=== PATIENT | male | born 1955 | race African-American/Black ===

== ENCOUNTER 2018-10-20 11:40 | Inpatient (IN) | payer MEDICAID, OTHER ==
[~2018-10-20] VITALS: Ht 167.6 cm; Wt 59.0 kg
[2018-10-20] MEDS ORDERED: PIPERACILLIN/TAZ 3.375G PREMIX 50 ML IV ONE (12:45)
[2018-10-20] MEDS ORDERED: VANCOMYCIN 1 G PREMIX 200 ML IV ONE (12:45)
[2018-10-20] MEDS ORDERED: SODIUM CHLORIDE 0.9% 1000ML BAG (SEPSIS BOLUS) IV ONE (12:45)
[2018-10-20 12:46] LABS: BASOPHILS % 0.9 % (0.0-2.0); EOSINOPHILS % 0.2 % (0.0-5.0); HEMATOCRIT. 41.5 % (42.0-52.0); LYMPHOCYTES % 12.8 % (20.0-50.0); MEAN CORPUSCULAR HEMOGLOBIN 32.4 pg (28.0-32.0); MEAN CORPUSCULAR VOLUME 95.9 fL (80.0-94.0); MEAN PLATELET VOLUME 9.9 fl (7.4-10.4); MONOCYTES % 6.1 % (2.0-8.0); PLATELET 278 x1000/uL (130-400); RED BLOOD CELL COUNT 4.32 mill/uL (4.7-6.1); RED CELL DISTRIBUTION WIDTH 14.9 % (11.6-14.6)
[2018-10-20 12:55] LABS: INR 0.9; PROTHROMBIN TIME 9.6 sec (9.6-11.0)
[2018-10-20 12:56] LABS: CHLORIDE 98 mEq/L (98-107)
[2018-10-20] MEDS ORDERED: INSULIN REGULAR (HUMULIN R) 300UNITS/3ML SUBCUT ONE (13:45)
[2018-10-20 14:34] LABS: CLARITY URINE CLEAR (CLEAR); COLOR URINE YELLOW (YELLOW); KETONES URINE NEGATIVE (NEGATIVE); LEUKOCYTE ESTERASE URINE NEGATIVE (NEGATIVE); NITRITE URINE NEGATIVE (NEGATIVE); OCCULT BLOOD URINE NEGATIVE (NEGATIVE); PROTEIN URINE NEGATIVE (NEGATIVE); SPECIFIC GRAVITY URINE 1.036 (1.005-1.030); UROBILINOGEN URINE 0.2 E.U./dL (0.2-1.0)
[2018-10-20] MEDS ORDERED: ONDANSETRON HCL 4MG/2ML INJ IV PRN (16:00)
[2018-10-20] MEDS ORDERED: ACETAMINOPHEN 325MG TABLET PO PRN (16:00)
[2018-10-20] MEDS ORDERED: MORPHINE SULFATE 2 MG/ML CPJ (NOT FOR IM USE) IV PRN (16:00)
[2018-10-20] MEDS ORDERED: CLONIDINE 0.1MG TABLET PO PRN (16:00)
[2018-10-20] MEDS ORDERED: DOCUSATE SODIUM 100MG CAPSULE PO PRN (16:00)
[2018-10-20] MEDS ORDERED: PIPERACILLIN/TAZ 3.375G PREMIX 50 ML IV SCH (16:00)
[2018-10-20] MEDS ORDERED: OXYCODONE HCL/ACETAMINOPHEN 5/325MG TABLET PO ONE (18:15)
[2018-10-21] MEDS ORDERED: INSULIN GLARGINE UD 100 UNITS/ML SYR SUBCUT NR (01:00)
[2018-10-21 04:00] VITALS: BP 154/78
[2018-10-21 04:10] VITALS: BP 156/81
[2018-10-21] MEDS: PIPERACILLIN/TAZ 3.375G PREMIX 50 ML IV SCH ×3 (06:41→21:29)
[2018-10-21] MEDS: SODIUM CHLORIDE 0.9% 1,000 ML IV SCH ×2 (06:42→17:32)
[2018-10-21] MEDS ORDERED: DEXTROSE 50% WATER 50ML SYRINGE IV PRN (07:45)
[2018-10-21 08:00] VITALS: BP 131/72
[2018-10-21] MEDS: VANCOMYCIN 750 MG PREMIX 150 ML IV SCH ×3 (08:02→23:30)
[2018-10-21] MEDS: ENOXAPARIN 40MG/0.4ML SYR SUBCUT SCH (08:03)
[2018-10-21] MEDS: AMLODIPINE 10MG TABLET PO SCH (08:03)
[2018-10-21] MEDS: INSULIN LISPRO 100 UNITS/ML SUBCUT SCH ×4 (08:08→21:37)
[2018-10-21 09:04] LABS: CHLORIDE 102 mEq/L (98-107)
[2018-10-21 09:05] LABS: BASOPHILS % 0.7 % (0.0-2.0); EOSINOPHILS % 1.5 % (0.0-5.0); HEMATOCRIT. 40.3 % (42.0-52.0); HEMOGLOBIN. 13.5 g/dL (14.0-18.0); LYMPHOCYTES % 22.3 % (20.0-50.0); MEAN CORPUSCULAR HEMOGLOBIN 31.5 pg (28.0-32.0); MEAN CORPUSCULAR VOLUME 94.2 fL (80.0-94.0); MEAN PLATELET VOLUME 9.5 fl (7.4-10.4); MONOCYTES % 6.6 % (2.0-8.0); NEUTROPHILS % 68.9 % (40.0-76.0); PLATELET 278 x1000/uL (130-400); RED BLOOD CELL COUNT 4.28 mill/uL (4.7-6.1); RED CELL DISTRIBUTION WIDTH 14.9 % (11.6-14.6)
[2018-10-21 11:55] VITALS: BP 137/77
[2018-10-21] MEDS: BLOOD SUGAR DIAGNOSTIC STRIP TEST SCH ×3 (12:26→21:17)
[2018-10-21] MEDS: INSULIN GLARGINE UD 100 UNITS/ML SYR SUBCUT SCH ×2 (13:43→21:37)
[2018-10-21 16:22] VITALS: BP 135/88
[2018-10-21] MEDS: HYDROCODONE/ACETAMINOPHEN 5/325MG TABLET PO PRN (17:30)
[2018-10-21 20:00] VITALS: BP 128/79
[2018-10-21] MEDS ORDERED: INSULIN GLARGINE UD 100 UNITS/ML SYR SUBCUT SCH ×2 (22:00)
[2018-10-22] VITALS: BP 137/79
[2018-10-22 04:00] VITALS: BP 149/86
[2018-10-22] MEDS: SODIUM CHLORIDE 0.9% 1,000 ML IV SCH ×2 (06:05→22:31)
[2018-10-22] MEDS: PIPERACILLIN/TAZ 3.375G PREMIX 50 ML IV SCH ×3 (06:05→22:25)
[2018-10-22] MEDS: BLOOD SUGAR DIAGNOSTIC STRIP TEST SCH ×4 (06:38→21:30)
[2018-10-22] MEDS: INSULIN LISPRO 100 UNITS/ML SUBCUT SCH ×4 (06:42→21:39)
[2018-10-22 08:00] VITALS: BP 135/66
[2018-10-22] MEDS: AMLODIPINE 10MG TABLET PO SCH (08:27)
[2018-10-22] MEDS: VANCOMYCIN 750 MG PREMIX 150 ML IV SCH ×2 (08:28→16:52)
[2018-10-22] MEDS: ENOXAPARIN 40MG/0.4ML SYR SUBCUT SCH (08:28)
[2018-10-22] MEDS: INSULIN GLARGINE UD 100 UNITS/ML SYR SUBCUT SCH ×2 (10:25→22:25)
[2018-10-22 12:00] VITALS: BP 133/75
[2018-10-22 20:00] VITALS: BP 138/74
[2018-10-23] VITALS: BP 132/68
[2018-10-23] MEDS: VANCOMYCIN 750 MG PREMIX 150 ML IV SCH ×3 (00:10→18:30)
[2018-10-23 04:00] VITALS: BP 135/76
[2018-10-23] MEDS: PIPERACILLIN/TAZ 3.375G PREMIX 50 ML IV SCH ×3 (06:07→22:28)
[2018-10-23] MEDS: BLOOD SUGAR DIAGNOSTIC STRIP TEST SCH ×4 (07:29→21:00)
[2018-10-23 08:00] VITALS: BP 140/76
[2018-10-23] MEDS: ENOXAPARIN 40MG/0.4ML SYR SUBCUT SCH (08:49)
[2018-10-23] MEDS: AMLODIPINE 10MG TABLET PO SCH (08:50)
[2018-10-23] MEDS: INSULIN LISPRO 100 UNITS/ML SUBCUT SCH ×4 (08:50→21:00)
[2018-10-23] MEDS: INSULIN GLARGINE UD 100 UNITS/ML SYR SUBCUT SCH ×2 (10:55→22:40)
[2018-10-23 12:06] VITALS: BP 140/76
[2018-10-23 15:54] VITALS: BP 149/82
[2018-10-23] MEDS: SODIUM CHLORIDE 0.9% 1,000 ML IV SCH (18:34)
[2018-10-23 20:00] VITALS: BP 144/78
[2018-10-24] VITALS: BP 156/81
[2018-10-24] MEDS: VANCOMYCIN 750 MG PREMIX 150 ML IV SCH ×3 (01:51→17:17)
[2018-10-24 04:00] VITALS: BP 142/89
[2018-10-24] MEDS: PIPERACILLIN/TAZ 3.375G PREMIX 50 ML IV SCH ×3 (05:29→22:13)
[2018-10-24] MEDS: BLOOD SUGAR DIAGNOSTIC STRIP TEST SCH ×4 (07:04→21:00)
[2018-10-24 08:00] VITALS: BP 140/74
[2018-10-24] MEDS: ENOXAPARIN 40MG/0.4ML SYR SUBCUT SCH (08:55)
[2018-10-24] MEDS: AMLODIPINE 10MG TABLET PO SCH (08:56)
[2018-10-24] MEDS: INSULIN LISPRO 100 UNITS/ML SUBCUT SCH ×4 (09:10→22:42)
[2018-10-24] MEDS: SODIUM CHLORIDE 0.9% 1,000 ML IV SCH (09:11)
[2018-10-24] MEDS: HYDROCODONE/ACETAMINOPHEN 5/325MG TABLET PO PRN (09:15)
[2018-10-24] MEDS: INSULIN GLARGINE UD 100 UNITS/ML SYR SUBCUT SCH ×2 (11:18→22:23)
[2018-10-24 11:47] VITALS: BP 137/70
[2018-10-24 16:13] VITALS: BP 140/78
[2018-10-24 20:00] VITALS: BP 153/79
[2018-10-25] VITALS: BP 157/78
[2018-10-25] MEDS: VANCOMYCIN 750 MG PREMIX 150 ML IV SCH ×3 (00:10→17:21)
[2018-10-25 04:00] VITALS: BP 158/81
[2018-10-25] MEDS: PIPERACILLIN/TAZ 3.375G PREMIX 50 ML IV SCH ×3 (05:57→22:33)
[2018-10-25] MEDS: BLOOD SUGAR DIAGNOSTIC STRIP TEST SCH ×4 (06:24→21:00)
[2018-10-25] MEDS: INSULIN LISPRO 100 UNITS/ML SUBCUT SCH ×4 (06:24→22:47)
[2018-10-25 07:45] LABS: CHLORIDE 107 mEq/L (98-107)
[2018-10-25 08:00] VITALS: BP 149/82
[2018-10-25] MEDS: ENOXAPARIN 40MG/0.4ML SYR SUBCUT SCH (09:05)
[2018-10-25] MEDS: AMLODIPINE 10MG TABLET PO SCH (09:06)
[2018-10-25] MEDS: INSULIN GLARGINE UD 100 UNITS/ML SYR SUBCUT SCH ×2 (09:53→22:47)
[2018-10-25] MEDS: SODIUM CHLORIDE 0.9% 1,000 ML IV SCH (09:54)
[2018-10-25 12:00] VITALS: BP 165/92
[2018-10-25 16:00] VITALS: BP 130/74
[2018-10-25 20:00] VITALS: BP 149/79
[2018-10-26] VITALS: BP 143/76
[2018-10-26] MEDS: VANCOMYCIN 750 MG PREMIX 150 ML IV SCH ×3 (01:09→17:07)
[2018-10-26 04:00] VITALS: BP 152/86
[2018-10-26] MEDS: PIPERACILLIN/TAZ 3.375G PREMIX 50 ML IV SCH ×3 (05:58→23:55)
[2018-10-26] MEDS: INSULIN LISPRO 100 UNITS/ML SUBCUT SCH ×4 (07:50→21:00)
[2018-10-26] MEDS: BLOOD SUGAR DIAGNOSTIC STRIP TEST SCH ×4 (07:57→21:00)
[2018-10-26 08:00] VITALS: BP 125/73
[2018-10-26] MEDS: AMLODIPINE 10MG TABLET PO SCH (08:45)
[2018-10-26] MEDS: ENOXAPARIN 40MG/0.4ML SYR SUBCUT SCH (08:46)
[2018-10-26] MEDS: SODIUM CHLORIDE 0.9% 1,000 ML IV SCH ×2 (11:00→11:32)
[2018-10-26] MEDS: INSULIN GLARGINE UD 100 UNITS/ML SYR SUBCUT SCH ×2 (11:43→23:42)
[2018-10-26 12:02] VITALS: BP 132/76
[2018-10-26 16:00] VITALS: BP 134/70
[2018-10-26 20:00] VITALS: BP 144/76
[2018-10-27] VITALS: BP 146/83
[2018-10-27 04:00] VITALS: BP 146/83
[2018-10-27] MEDS: VANCOMYCIN 750 MG PREMIX 150 ML IV SCH ×3 (04:19→17:58)
[2018-10-27] MEDS: SODIUM CHLORIDE 0.9% 1,000 ML IV SCH (06:14)
[2018-10-27] MEDS: PIPERACILLIN/TAZ 3.375G PREMIX 50 ML IV SCH ×3 (06:14→22:45)
[2018-10-27] MEDS: INSULIN LISPRO 100 UNITS/ML SUBCUT SCH ×4 (07:50→20:08)
[2018-10-27 08:00] VITALS: BP 119/80
[2018-10-27] MEDS: BLOOD SUGAR DIAGNOSTIC STRIP TEST SCH ×4 (08:03→20:05)
[2018-10-27] MEDS: ENOXAPARIN 40MG/0.4ML SYR SUBCUT SCH (08:50)
[2018-10-27] MEDS: AMLODIPINE 10MG TABLET PO SCH (08:50)
[2018-10-27] MEDS: INSULIN GLARGINE UD 100 UNITS/ML SYR SUBCUT SCH ×2 (10:44→22:34)
[2018-10-27 12:00] VITALS: BP 134/81
[2018-10-27 16:00] VITALS: BP 134/83
[2018-10-27 20:00] VITALS: BP 143/74
[2018-10-28] VITALS: BP 128/66
[2018-10-28] MEDS: VANCOMYCIN 750 MG PREMIX 150 ML IV SCH ×3 (01:37→16:00)
[2018-10-28 04:00] VITALS: BP 140/78
[2018-10-28] MEDS: PIPERACILLIN/TAZ 3.375G PREMIX 50 ML IV SCH ×3 (06:09→21:18)
[2018-10-28] MEDS: BLOOD SUGAR DIAGNOSTIC STRIP TEST SCH ×4 (06:23→20:10)
[2018-10-28 08:00] VITALS: BP 117/70
[2018-10-28] MEDS: ENOXAPARIN 40MG/0.4ML SYR SUBCUT SCH (08:54)
[2018-10-28] MEDS: AMLODIPINE 10MG TABLET PO SCH (08:55)
[2018-10-28 08:57] LABS: BASOPHILS % 1.1 % (0.0-2.0); HEMATOCRIT. 39.6 % (42.0-52.0); HEMOGLOBIN. 13.4 g/dL (14.0-18.0); LYMPHOCYTES % 34.1 % (20.0-50.0); MEAN CORPUSCULAR HEMOGLOBIN 31.6 pg (28.0-32.0); MEAN CORPUSCULAR VOLUME 93.5 fL (80.0-94.0); MEAN PLATELET VOLUME 8.4 fl (7.4-10.4); MONOCYTES % 11.7 % (2.0-8.0); NEUTROPHILS % 50.1 % (40.0-76.0); PLATELET 384 x1000/uL (130-400); RED BLOOD CELL COUNT 4.24 mill/uL (4.7-6.1); RED CELL DISTRIBUTION WIDTH 15.3 % (11.6-14.6)
[2018-10-28] MEDS: INSULIN LISPRO 100 UNITS/ML SUBCUT SCH ×4 (09:34→20:10)
[2018-10-28] MEDS: INSULIN GLARGINE UD 100 UNITS/ML SYR SUBCUT SCH ×2 (10:39→21:18)
[2018-10-28 12:13] VITALS: BP 132/72
[2018-10-28 16:16] VITALS: BP 132/74
[2018-10-28 20:00] VITALS: BP 133/80
[2018-10-29] VITALS: BP 135/84
[2018-10-29] MEDS: VANCOMYCIN 750 MG PREMIX 150 ML IV SCH ×3 (00:45→15:43)
[2018-10-29 04:00] VITALS: BP 135/74
[2018-10-29] MEDS: PIPERACILLIN/TAZ 3.375G PREMIX 50 ML IV SCH ×3 (05:24→23:03)
[2018-10-29] MEDS: BLOOD SUGAR DIAGNOSTIC STRIP TEST SCH ×4 (06:26→21:00)
[2018-10-29] MEDS: INSULIN LISPRO 100 UNITS/ML SUBCUT SCH ×4 (07:50→23:02)
[2018-10-29 08:00] VITALS: BP 127/77
[2018-10-29] MEDS: ENOXAPARIN 40MG/0.4ML SYR SUBCUT SCH (09:09)
[2018-10-29] MEDS: AMLODIPINE 10MG TABLET PO SCH (09:28)
[2018-10-29] MEDS: INSULIN GLARGINE UD 100 UNITS/ML SYR SUBCUT SCH ×2 (09:56→22:54)
[2018-10-29 12:17] VITALS: BP 154/83
[2018-10-29 16:10] VITALS: BP 150/75
[2018-10-29 20:00] VITALS: BP 125/74
[2018-10-30] VITALS: BP 142/81
[2018-10-30] MEDS: VANCOMYCIN 750 MG PREMIX 150 ML IV SCH ×2 (01:11→08:52)
[2018-10-30 04:00] VITALS: BP 133/79
[2018-10-30] MEDS: PIPERACILLIN/TAZ 3.375G PREMIX 50 ML IV SCH ×2 (05:51→14:31)
[2018-10-30] MEDS: BLOOD SUGAR DIAGNOSTIC STRIP TEST SCH ×3 (07:20→21:00)
[2018-10-30] MEDS: INSULIN LISPRO 100 UNITS/ML SUBCUT SCH ×4 (07:50→22:47)
[2018-10-30 08:00] VITALS: BP 128/80
[2018-10-30 08:15] LABS: EOSINOPHILS % 2.9 % (0.0-5.0); HEMATOCRIT. 39.9 % (42.0-52.0); HEMOGLOBIN. 13.4 g/dL (14.0-18.0); LYMPHOCYTES % 32.2 % (20.0-50.0); MEAN CORPUSCULAR HEMOGLOBIN 31.7 pg (28.0-32.0); MEAN CORPUSCULAR VOLUME 94.5 fL (80.0-94.0); MEAN PLATELET VOLUME 8.4 fl (7.4-10.4); MONOCYTES % 13.1 % (2.0-8.0); NEUTROPHILS % 50.8 % (40.0-76.0); PLATELET 383 x1000/uL (130-400); RED BLOOD CELL COUNT 4.22 mill/uL (4.7-6.1); RED CELL DISTRIBUTION WIDTH 15.2 % (11.6-14.6)
[2018-10-30 08:38] LABS: CHLORIDE 104 mEq/L (98-107)
[2018-10-30 08:49] LABS: VANCOMYCIN TROUGH 19.6 ug/mL (5.0-10.0)
[2018-10-30] MEDS: ENOXAPARIN 40MG/0.4ML SYR SUBCUT SCH (08:52)
[2018-10-30] MEDS: AMLODIPINE 10MG TABLET PO SCH (09:39)
[2018-10-30] MEDS: INSULIN GLARGINE UD 100 UNITS/ML SYR SUBCUT SCH ×2 (10:29→22:45)
[2018-10-30 12:00] VITALS: BP 137/81
[2018-10-30 16:00] VITALS: BP 127/70
[2018-10-30 20:00] VITALS: BP 135/84
[2018-10-30] MEDS: VANCOMYCIN 1 G PREMIX 200 ML IV SCH (22:19)
[2018-10-30] MEDS: HYDROCODONE/ACETAMINOPHEN 5/325MG TABLET PO PRN (23:12)
[2018-10-31] MEDS: PIPERACILLIN/TAZ 3.375G PREMIX 50 ML IV SCH ×4 (00:22→22:56)
[2018-10-31 04:00] VITALS: BP 133/60
[2018-10-31] MEDS: BLOOD SUGAR DIAGNOSTIC STRIP TEST SCH ×4 (07:20→21:48)
[2018-10-31] MEDS: ENOXAPARIN 40MG/0.4ML SYR SUBCUT SCH (09:10)
[2018-10-31] MEDS: AMLODIPINE 10MG TABLET PO SCH (09:11)
[2018-10-31] MEDS: VANCOMYCIN 1 G PREMIX 200 ML IV SCH ×2 (09:11→20:15)
[2018-10-31] MEDS: INSULIN LISPRO 100 UNITS/ML SUBCUT SCH ×4 (09:13→21:46)
[2018-10-31] MEDS: INSULIN GLARGINE UD 100 UNITS/ML SYR SUBCUT SCH ×2 (10:25→21:47)
[2018-10-31 12:00] VITALS: BP 157/84
[2018-10-31 16:00] VITALS: BP 139/70
[2018-10-31 20:00] VITALS: BP 132/73
[2018-11-01] VITALS: BP 116/76
[2018-11-01 04:00] VITALS: BP 126/78
[2018-11-01] MEDS: PIPERACILLIN/TAZ 3.375G PREMIX 50 ML IV SCH ×3 (06:15→22:22)
[2018-11-01 07:12] LABS: CHLORIDE 102 mEq/L (98-107)
[2018-11-01] MEDS: INSULIN LISPRO 100 UNITS/ML SUBCUT SCH ×4 (07:50→21:12)
[2018-11-01] MEDS: BLOOD SUGAR DIAGNOSTIC STRIP TEST SCH ×4 (07:56→21:08)
[2018-11-01 08:00] VITALS: BP 126/78
[2018-11-01] MEDS: VANCOMYCIN 1 G PREMIX 200 ML IV SCH ×2 (08:28→21:02)
[2018-11-01] MEDS: AMLODIPINE 10MG TABLET PO SCH (08:32)
[2018-11-01] MEDS: ENOXAPARIN 40MG/0.4ML SYR SUBCUT SCH (08:35)
[2018-11-01] MEDS: INSULIN GLARGINE UD 100 UNITS/ML SYR SUBCUT SCH ×2 (09:33→22:22)
[2018-11-01 12:00] VITALS: BP 116/73
[2018-11-01 16:00] VITALS: BP 126/72
[2018-11-01] MEDS: HYDROCODONE/ACETAMINOPHEN 5/325MG TABLET PO PRN (18:01)
[2018-11-02] VITALS: BP 118/71
[2018-11-02 04:00] VITALS: BP 144/80
[2018-11-02] MEDS: PIPERACILLIN/TAZ 3.375G PREMIX 50 ML IV SCH ×3 (05:36→22:16)
[2018-11-02] MEDS: BLOOD SUGAR DIAGNOSTIC STRIP TEST SCH ×4 (06:42→21:01)
[2018-11-02] MEDS: INSULIN LISPRO 100 UNITS/ML SUBCUT SCH ×4 (07:50→21:19)
[2018-11-02 08:00] VITALS: BP 133/73
[2018-11-02] MEDS: VANCOMYCIN 1 G PREMIX 200 ML IV SCH (08:36)
[2018-11-02] MEDS: MULTIVITAMINS,THER W-MINERALS TABLET PO SCH (08:36)
[2018-11-02] MEDS: AMLODIPINE 10MG TABLET PO SCH (08:37)
[2018-11-02] MEDS: ENOXAPARIN 40MG/0.4ML SYR SUBCUT SCH (08:37)
[2018-11-02] MEDS: INSULIN GLARGINE UD 100 UNITS/ML SYR SUBCUT SCH ×2 (10:35→22:22)
[2018-11-02 12:19] VITALS: BP 142/77
[2018-11-02 16:15] VITALS: BP 138/77
[2018-11-02 20:00] VITALS: BP 151/79
[2018-11-03] VITALS: BP 142/78
[2018-11-03 04:00] VITALS: BP 142/88
[2018-11-03] MEDS: VANCOMYCIN 1 G PREMIX 200 ML IV SCH (06:27)
[2018-11-03] MEDS: BLOOD SUGAR DIAGNOSTIC STRIP TEST SCH ×4 (06:34→21:00)
[2018-11-03] MEDS: INSULIN LISPRO 100 UNITS/ML SUBCUT SCH ×4 (07:50→23:11)
[2018-11-03 08:00] VITALS: BP 143/75
[2018-11-03] MEDS: ENOXAPARIN 40MG/0.4ML SYR SUBCUT SCH (09:14)
[2018-11-03] MEDS: MULTIVITAMINS,THER W-MINERALS TABLET PO SCH (09:14)
[2018-11-03] MEDS: AMLODIPINE 10MG TABLET PO SCH (09:15)
[2018-11-03] MEDS: INSULIN GLARGINE UD 100 UNITS/ML SYR SUBCUT SCH ×2 (09:18→23:11)
[2018-11-03] MEDS: PIPERACILLIN/TAZ 3.375G PREMIX 50 ML IV SCH ×3 (10:46→21:00)
[2018-11-03 12:00] VITALS: BP 140/78
[2018-11-03 16:00] VITALS: BP 131/83
[2018-11-03] MEDS ORDERED: VANCOMYCIN 1 G PREMIX 200 ML IV SCH (18:00)
[2018-11-03 20:00] VITALS: BP 134/77
[2018-11-04] VITALS: BP 143/81
[2018-11-04 04:00] VITALS: BP 143/80
[2018-11-04] MEDS ORDERED: VANCOMYCIN 1 G PREMIX 200 ML IV SCH (06:00)
[2018-11-04 08:00] VITALS: BP 139/80
[2018-11-04] MEDS: BLOOD SUGAR DIAGNOSTIC STRIP TEST SCH ×4 (08:06→21:16)
[2018-11-04] MEDS: MULTIVITAMINS,THER W-MINERALS TABLET PO SCH (08:52)
[2018-11-04] MEDS: AMLODIPINE 10MG TABLET PO SCH (08:52)
[2018-11-04] MEDS: ENOXAPARIN 40MG/0.4ML SYR SUBCUT SCH (08:53)
[2018-11-04] MEDS: INSULIN LISPRO 100 UNITS/ML SUBCUT SCH ×4 (08:59→21:29)
[2018-11-04] MEDS: INSULIN GLARGINE UD 100 UNITS/ML SYR SUBCUT SCH (10:46)
[2018-11-04 12:00] VITALS: BP 145/80
[2018-11-04 16:00] VITALS: BP 142/74
[2018-11-04 20:00] VITALS: BP 158/88
[2018-11-05] MEDS: INSULIN GLARGINE UD 100 UNITS/ML SYR SUBCUT SCH ×2 (00:01→10:58)
[2018-11-05 04:00] VITALS: BP 156/81
[2018-11-05] MEDS: BLOOD SUGAR DIAGNOSTIC STRIP TEST SCH (07:20)
[2018-11-05 08:00] VITALS: BP 107/74
[2018-11-05] MEDS: INSULIN LISPRO 100 UNITS/ML SUBCUT SCH (08:51)
[2018-11-05] MEDS: AMLODIPINE 10MG TABLET PO SCH (08:52)
[2018-11-05] MEDS: ENOXAPARIN 40MG/0.4ML SYR SUBCUT SCH (08:52)
[2018-11-05] MEDS: MULTIVITAMINS,THER W-MINERALS TABLET PO SCH (08:52)
[2018-11-05 11:15] VITALS: BP 145/73
== END 2018-11-05 12:37 | DRG 380 ==
LOC: ER 11:40 → 6EST 15:16 → EDBEDREQSVC 15:59 → EDBEDREQ 10-21 00:45 → ENRESERV 10-21 02:28
PROVIDERS: ADMIT Hospitalist; ATTEND Hospitalist
DX: E11.621 Type 2 diabetes mellitus with foot ulcer (principal); L97.519 Non-pressure chronic ulcer of other part of right foot with unspecified severity; E43 Unspecified severe protein-calorie malnutrition; E11.42 Type 2 diabetes mellitus with diabetic polyneuropathy; E11.51 Type 2 diabetes mellitus with diabetic peripheral angiopathy without gangrene; F17.210 Nicotine dependence, cigarettes, uncomplicated; E11.65 Type 2 diabetes mellitus with hyperglycemia; I10 Essential (primary) hypertension; Z59.0 Homelessness; Z68.21 Body mass index [BMI] 21.0-21.9, adult; Z71.6 Tobacco abuse counseling
CPT/HCPCS: 36415; 71045; 73630; 80048; 80202; 82962; 83036; 83605; 84145; 93005; 93923; 93970; 96365; 96368; 96372; 97116; 97162; 99285; C1893; J1650; J1815; J2543; J3370; J7030